=== PATIENT | female | born 1990 | race Caucasian/White ===

== ENCOUNTER 2017-09-17 13:16 | Emergency (ER) | payer MEDICAID ==
[~2017-09-17] VITALS: Ht 157.5 cm; Wt 56.7 kg
[2017-09-17 13:17] VITALS: BP 124/74
--- NOTE | 2017-09-17 13:17 | NUR ---
PT [facility] TO [facility]AIR B FOR PRE-BOOK.
--- NOTE | 2017-09-17 13:18 | NUR ---
27F BIB [facility] FOR DUI; PT STATES NO COMPLAINTS AT THIS TIME. HX: PT DENIES. SKIN IS PINK/WARM/DRY; AAOX4 WITH EVEN AND STEADY GAIT; LUNGS CLEAR BL. PT DENIES ANY FEVER, CP, SOB, OR COUGH AT THIS TIME; PATIENT STATES PAIN OF 0/10 AT THIS TIME.
--- NOTE | 2017-09-17 13:31 | NUR ---
Patient being evaluated by DR DORSEY at bedside.
[2017-09-17 13:56] VITALS: BP 124/74
--- NOTE | 2017-09-17 13:56 | NUR ---
PATIENT BIB [employer]. PATIENT EXAMINED BY DR DORSEY . PATIENT MEDICALLY CLEARED AND RELEASED IN CUSTODY IN STABLE CONDITION. ORIGINAL PRE-BOOK FORM GIVEN TO OFFICER .
== END 2017-09-17 13:56 ==
LOC: MED 13:16
DX: Z02.89 Encounter for other administrative examinations (principal)
CPT/HCPCS: 99283